=== PATIENT | male | born 1995 | race Caucasian/White ===

== ENCOUNTER 2017-05-28 19:12 | Emergency (ER) | payer OTHER ==
[~2017-05-28] VITALS: Ht 167.6 cm; Wt 149.7 kg
[2017-05-28 19:19] VITALS: BP 125/84
[2017-05-29] MEDS ORDERED: HYDROcodone-ACET 10/325MG TAB PO ONE (00:15)
[2017-05-29] MEDS ORDERED: LORazepam 0.5 MG TAB PO ONE (00:15)
[2017-05-29] MEDS ORDERED: DEXAMETHASONE 4 MG TAB PO ONE (00:30)
== END 2017-05-29 00:45 | disposition home or self-care (01) ==
LOC: EDBD 19:12 → ER 19:22
DX: S13.4XXA Sprain of ligaments of cervical spine, initial encounter (principal); V49.49XA Driver injured in collision with other motor vehicles in traffic accident, initial encounter; Y93.89 Activity, other specified; Y99.8 Other external cause status; Y92.410 Unspecified street and highway as the place of occurrence of the external cause
CPT/HCPCS: 72040; 73030; 99284; J8540

== ENCOUNTER 2020-04-24 19:40 | Emergency (ER) | payer SELFPAY ==
[~2020-04-24] VITALS: Ht 170.2 cm; Wt 140.6 kg
[2020-04-24] MEDS ORDERED: IBUPROFEN 800 MG TAB PO ONE ×2 (22:15→22:30)
[2020-04-24 22:41] VITALS: BP 153/97
== END 2020-04-24 23:06 | disposition home or self-care (01) ==
LOC: ER 19:42
DX: S83.421A Sprain of lateral collateral ligament of right knee, initial encounter (principal); S46.911A Strain of unspecified muscle, fascia and tendon at shoulder and upper arm level, right arm, initial encounter; V49.9XXA Car occupant (driver) (passenger) injured in unspecified traffic accident, initial encounter; Y93.89 Activity, other specified; Y92.89 Other specified places as the place of occurrence of the external cause; Y99.8 Other external cause status
CPT/HCPCS: 29505; 73030; 73562